=== PATIENT | male | born 1975 | race Caucasian/White ===

== ENCOUNTER 2017-12-01 15:10 | Emergency (ER) | payer SELFPAY ==
[~2017-12-01] VITALS: Ht 182.9 cm; Wt 99.8 kg
[~2017-12-01 15:10] MED LIST: CLON0.5T3 PO; CLON0.5T60 PO; CLON2TAB3 PO; DIPH50CA33 PO; DOXE25CA2 PO; LISI20TA2 PO; LOVA40TA2 PO; MTF500T PO; PARO40TA47 PO; SIMV20TA3 PO; SRTR100T PO
[2017-12-01] MEDS ORDERED: METH4TAB PO (15:44)
--- NOTE | 2017-12-01 15:45 | ED Upper Extremity ---
General Chief Complaint: General Problems/Pain Stated Complaint: MAJORITY RIGHT HAND NERVE PAIN Nursing Triage Note: PT AMBULATED TO RM 4 W/O DIFFICULTY. PT C/O OF NERVE PAIN IN R HAND THAT HAS PERSISITED FOR SEVERAL MONTHS. PT STATES IT IS WORSE TODAY. PT DESCRIBES NUMBNESS AND TINGLING. Nursing Sepsis Screen: No Definite Risk Source: patient Exam Limitations: no limitations History of Present Illness Date Seen by Provider: Dec 01, 2017 Time Seen by Provider: 15:40 Initial Comments to ER with numbness and tingling to the right hand for several months.worse at night. No known injury. He is concerned this may represent diabetes. He is a diabetic controlled with metformin. Numbness affects the thumb pointer finger middle finger the radial side of the ring finger, not the ulnar side of the ring finger and not the little finger in the median nerve distribution. The numbness starts at the wrist and extends distally Onset: other Severity: moderate Pain/Injury Location: right hand Allergies and Home Medications Allergies Coded Allergies: No Known Drug Allergies (Unverified , 05/14/10) Home Medications Diphenhydramine Hcl 50 Mg Tablet, 1 EACH PO QID Prescribed by: KINGA BROCK MD on 12/09/14 1722 Doxepin Hcl 25 Mg Capsule, 25 MG PO HS, (Reported) Lisinopril 20 Mg Tablet, 20 MG PO DAILY, (Reported) Metformin Hcl 500 Mg Tab, 500 MG PO BIDPC, (Reported) Paroxetine Hcl 40 Mg Tablet, 40 MG PO DAILY, (Reported) Simvastatin 20 Mg Tablet, 20 MG PO DAILY, (Reported) Daily with evening meal Patient Home Medication List Home Medication List Reviewed: Yes Constitutional: see HPI EENTM: see HPI Respiratory: no symptoms reported Cardiovascular: no symptoms reported Genitourinary: no symptoms reported Musculoskeletal: see HPI Skin: no symptoms reported Psychiatric/Neurological: No Symptoms Reported Past Mycwvch-Pbzxvt-Mhlipy Hx Patient Social History Alcohol Use: Occasionally Uses Recreational Drug Use: No 2nd Hand Smoke Exposure: No Recent Foreign Travel: No Contact w/Someone Who Travel: No Recent Infectious Disease Expo: No Physical Abuse: No Sexual Abuse: No Immunizations Up To Date Tetanus Booster (TDap): Less than 5yrs Seasonal Allergies Seasonal Allergies: No Past Medical History High Cholesterol, Hypertension Reproductive Disorders: No Gastroesophageal Reflux Diabetes, Non-Insulin dep Anxiety, Depression Nursing Suicide Risk Score: 0 Family Medical History No Pertinent Family Hx Physical Exam Vital Signs Vital Signs - First Documented 12/01/17 15:25 Temp 96.5 Pulse 68 Resp 15 B/P (MAP) 121/76 (91) Pulse Ox 97 O2 Delivery Room Air Capillary Refill : Less Than 3 Seconds Height, Weight, BMI Height: 6', 0" Weight: 220lbs oz, [id number] Method:Stated ,BMI General Appearance: WD/WN, no apparent distress HEENT: PERRL/EOMI, normal ENT inspection Neck: non-tender, full range of motion Respiratory: no respiratory distress, no accessory muscle use Gastrointestinal: normal bowel sounds, non tender Shoulder: normal inspection, non-tender Elbow/Forearm: normal inspection, non-tender Hand: normal inspection, non-tender, Right (o swelling redness or ecchymosis. Complains of tingling to the thumb pointer middle finger radial side of the ring finger and the tingling excludes the ulnar side of the ring finger and the pinky finger) Neurologic/Tendon: normal motor functions, normal tendon functions Neurologic/Psychiatric: alert, normal mood/affect, oriented x 3 Skin: normal color, warm/dry Progress/Results/Core Measures Results/Orders Vital Signs/I&O 12/01/17 15:25 Temp 96.5 Pulse 68 Resp 15 B/P (MAP) 121/76 (91) Pulse Ox 97 O2 Delivery Room Air Blood Pressure Mean: 91 Departure Impression Primary Impression: Right carpal tunnel syndrome Disposition: 01 HOME, SELF-CARE Condition: Stable Departure-Patient Inst. Decision time for Depature: 15:43 Referrals: [facility] [place] Primary Care Physician HOPE [facility] JOHN T MD STRINGER, ROBERT F DO ZAFUTA, MICHAEL P MD Patient Instructions: Carpal Tunnel Exercises, Carpal Tunnel Release, Carpal Tunnel Syndrome Add. Discharge Instructions: 1. Wear the splint at night. Steroids as directed. Follow-up with your doctor next week.Alternatively may call one of the orthopedic surgeons listed to make an appointment to be seen for further evaluation of this. The steroids may raise your blood glucose. If you notice that her blood sugars started going over 300, stop the steroid.All discharge instructions reviewed with patient and/ or family. Voiced understanding. Scripts Methylprednisolone (Medrol) 4 Mg Tab.ds.pk 4 MG PO UD, #1 PKG Prov: WES LEON APRN 12/01/17 Work/School Note: Work Release Form Date Seen in the Emergency Department: Dec 01, 2017 Return to Work: Dec 02, 2017 Other Restrictions Listed Below: splint on the right wrist until released WES LEON APRN Dec 01, 2017 15:45
[2017-12-01 15:56] VITALS: BP 121/76
== END 2017-12-01 15:56 | disposition home or self-care (01) ==
LOC: EDUNIT# 15:10 → ER 15:12
DX: G56.01 Carpal tunnel syndrome, right upper limb (principal); E78.00 Pure hypercholesterolemia, unspecified; I10 Essential (primary) hypertension; K21.9 Gastro-esophageal reflux disease without esophagitis; E11.9 Type 2 diabetes mellitus without complications; F41.9 Anxiety disorder, unspecified; F32.9 Major depressive disorder, single episode, unspecified; Z79.84 Long term (current) use of oral hypoglycemic drugs
CPT/HCPCS: 99282

== ENCOUNTER 2019-12-02 23:19 | Emergency (ER) | payer SELFPAY ==
[~2019-12-02] VITALS: Ht 183 cm; Wt 110.4 kg
[~2019-12-02 23:19] MED LIST changes: +METH4TAB PO
[2019-12-02] MEDS ORDERED: SERT25TA5 PO (23:33)
[2019-12-02] MEDS ORDERED: CLON0.252 PO (23:33)
[2019-12-02] MEDS ORDERED: TETANUS,DIPTH,PERTUSS P/F (BOOSTRIX) 0.5 ML VIAL IM ONE (23:45)
[2019-12-03] MEDS ORDERED: TRIM/SULFAMETH 160/800 (SEPTRA DS) TAB PO ONE (00:15)
[2019-12-03] MEDS ORDERED: CEPH-507 PO (00:22)
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
[2019-12-03] MEDS ORDERED: CEPHALEXIN 250 MG (KEFLEX) CAP PO ONE (00:30)
[2019-12-03 00:31] VITALS: BP 145/88
--- NOTE | 2019-12-03 06:30 | Diagnostic Imaging Report ---
INDICATION: Left elbow pain COMPARISON: None FINDINGS: 3 views of the left elbow demonstrate no fracture or dislocation. Articular surfaces are normal. No joint effusion or foreign body. IMPRESSION: Negative left elbow Dictated by: Dictated on workstation # [id number]
== END 2019-12-03 00:31 | disposition home or self-care (01) ==
LOC: EDUNIT# 23:19 → ER 23:23
DX: S50.312A Abrasion of left elbow, initial encounter (principal); I10 Essential (primary) hypertension; E11.9 Type 2 diabetes mellitus without complications; E78.00 Pure hypercholesterolemia, unspecified; Z79.84 Long term (current) use of oral hypoglycemic drugs; Z23 Encounter for immunization; V18.4XXA Pedal cycle driver injured in noncollision transport accident in traffic accident, initial encounter
CPT/HCPCS: 73080; 90715